=== PATIENT | female | born 1995 | race Caucasian/White ===

== ENCOUNTER 2019-08-07 00:10 | Emergency (ER) | payer MEDICAID ==
[~2019-08-07] VITALS: Ht 157.5 cm; Wt 76.3 kg
[2019-08-07] MEDS ORDERED: ACETAMINOPHEN 325MG TABLET PO ONE (02:00)
[2019-08-07 03:09] VITALS: BP 120/72
== END 2019-08-07 03:09 | disposition home or self-care (01) ==
LOC: ER 00:10
DX: S39.012A Strain of muscle, fascia and tendon of lower back, initial encounter (principal); X58.XXXA Exposure to other specified factors, initial encounter; Y93.89 Activity, other specified; Y92.89 Other specified places as the place of occurrence of the external cause; Y99.8 Other external cause status
CPT/HCPCS: 72100; 81025; 99283

== ENCOUNTER 2022-12-16 23:49 | Emergency (ER) | payer MEDICAID, OTHER ==
[~2022-12-16] VITALS: Ht 157.5 cm; Wt 72.0 kg
[2022-12-17 00:16] VITALS: BP 117/64; PULSE 77; RESP 18; TEMP 98.1; O2SAT 98
[2022-12-17] MEDS ORDERED: ACETAMINOPHEN 325MG TABLET PO STA (04:00)
[2022-12-17] MEDS ORDERED: CYCL5TAB PO (06:26)
[2022-12-17] MEDS ORDERED: NAPR-681 PO (06:26)
== END 2022-12-17 07:07 | disposition home or self-care (01) ==
LOC: ER 12-17 00:36
DX: S16.1XXA Strain of muscle, fascia and tendon at neck level, initial encounter (principal); M25.552 Pain in left hip; V49.9XXA Car occupant (driver) (passenger) injured in unspecified traffic accident, initial encounter; Y93.89 Activity, other specified; Y92.89 Other specified places as the place of occurrence of the external cause; Y99.8 Other external cause status
CPT/HCPCS: 73502; 99284